=== PATIENT | male | born 1965 | race Caucasian/White ===

== ENCOUNTER 2018-07-31 05:24 | Day surgery (SDC) | payer OTHER ==
[2018-07-31] VITALS (12 sets, daily range): BP systolic 104–160; BP diastolic 50–92; PULSE 55–78; RESP 14–22; Ht 182.9 cm; Wt 81.5 kg
[~2018-07-31] VITALS: Ht 182.9 cm; Wt 81.5 kg
[2018-07-31] MEDS ORDERED: CEFAZOLIN 2 GM/50 ML (PMX) 50 ML IVPB SCH (06:27)
[2018-07-31] MEDS ORDERED: CEFAZOLIN 1 GM INJ IV ONE (06:30)
[2018-07-31] MEDS ORDERED: LACTATED RINGER'S 1,000 ML IV SCH (06:30)
--- NOTE | 2018-07-31 06:51 | HPN ---
Date/Time of Note Date/Time of Note DATE: 07/31/18 TIME: 06:51 Interval H&P Admission Note Pt. seen H&P reviewed: No system changes ANU COSBY MD July 31, 2018 06:51
[2018-07-31] MEDS ORDERED: MIDAZOLAM 1 MG/ML 2 ML INJ ONE ×2 (06:55→07:04)
[2018-07-31] MEDS ORDERED: GLYCOPYRROLATE 0.4 MG INJ ONE (07:00)
[2018-07-31] MEDS ORDERED: PHENYLephrine (100 MCG/ML) 10ML SYG ONE (07:00)
--- NOTE | 2018-07-31 07:01 | PREAC ---
Date/Time of Note Date/Time of Note DATE: 07/31/18 TIME: 07:00 Anesthesia Eval and Record Evaluation Time Pre-Procedure Interview DATE: 07/31/18 TIME: 07:00 Age 53 Sex male NPO: 8 hrs Preoperative diagnosis lumbar stenosis Planned procedure L4-5 lumbar laminectomy Past Medical History Past Medical History: None Surgery & Anesthesia Issues No known issue Meds Anticoagulation: No Beta Aneta within 24 hr: No Reason Beta Aneta not given: Pt. not on B-Aneta No Active Prescriptions or Reported Meds Current Medications Lactated Ringer's 1,000 ml @ 0 mls/hr Q0M IV Last administered on 07/31/18at 06:11; Admin Dose 0 MLS/HR; Start 07/31/18 at 06:30 Meds reviewed: Yes Allergies Coded Allergies: Penicillins (Verified Allergy, Unknown, 07/31/18) NOT SURE. IT HAPPEND A CHILD Allergies Reviewed: Yes Labs/Studies Labs Reviewed: Reviewed by anesthesiologist Blood Bank Test 07/31/18 05:49 07/31/18 06:12 Blood Type O POSITIVE Blood Product Summary Counts test: N/A Studies: ECG Pre-procedure Exam Last vitals Vital Signs Date Temp Pulse Resp B/P (MAP) Pulse Ox O2 O2 Flow FiO2 Time Delivery Rate 07/31/18 98.2 55 18 134/92 99 Room Air 06:00 (106) Airway: Adequate mouth opening, Adequate thyromental dist Mallampati: Mallampati II Teeth: Normal Lung: Normal Heart: Normal ASA Physical Status ASA physical status: 2 Emergency: None Planned Anesthetic General/MAC: ETT Planned Pain Management Parenteral pain med, Local by surgeon Pre-operative Attestations Prior to commencing anesthesia and surgery, the patient was re-evaluated, there was verification of: *The patient's identity *The results of appropriate recent lab work and preoperative vital signs *The above evaluation not changing prior to induction *Anesthetic plan, risk benefits, alternative and complications discussed with patient/family; questions answered; patient/family understands, accepts and wishes to proceed. HOSSEIN GANN MD July 31, 2018 07:01
[2018-07-31] MEDS ORDERED: BUPIVACAINE 0.25% (MPF) 30 ML INJ ONE (07:33)
[2018-07-31] MEDS ORDERED: POLYMYXIN/BACITRACIN 1L IRRIG ONE (07:33)
[2018-07-31] MEDS ORDERED: THROMBIN (BOVINE) 5,000 UNIT VIAL TP ONE (08:41)
[2018-07-31] MEDS ORDERED: SURGIFOAM POWDER 1 GM KIT ONE (08:41)
[2018-07-31] MEDS ORDERED: ONDANSETRON 4 MG INJ ONE (09:13)
[2018-07-31] MEDS ORDERED: ROCURONIUM 50 MG INJ ONE (09:15)
[2018-07-31] MEDS ORDERED: LIDOCAINE 2% (SDV) 5 ML INJ ONE (09:15)
[2018-07-31] MEDS ORDERED: PROPOFOL 20 ML ONE (09:15)
[2018-07-31] MEDS ORDERED: METOCLOPRAMIDE 10 MG INJ ONE (09:16)
[2018-07-31] MEDS ORDERED: OXYCODONE/ACETAMINOPHEN (5/325) TAB PO PRN ×2 (09:30)
[2018-07-31] MEDS ORDERED: MEPERIDINE 25 MG INJ ONE (09:32)
--- NOTE | 2018-07-31 09:36 | SIPON ---
Date/Time of Note Date/Time of Note DATE: 07/31/18 TIME: 09:33 Operative Report Preoperative Diagnosis Spinal Stenosis L3 Postoperative Diagnosis same Operation/Procedure Performed Central decompressive laminectomy at L3 Partial central decompressive laminectomy at L4 (superiorly) Inspection of the L3-4 disc on the left Medial facetectomy and foraminotomy L3-4 bilaterally Cosmetic wound closure (5 cm) Lateral localizing lumbar radiographs (2) Intraoperative nerve monitoring (2-1/2 hours) Surgeon see signature line clerical administrative assistant Diana TROTTER Anesthesia: general Estimated blood loss: 10 - 50 ml's Transfusion Required none Specimen Spinous process of L3 Grafts/Implants none Complications none ANU COSBY MD July 31, 2018 09:36
--- NOTE | 2018-07-31 09:39 | PAC ---
Date/Time of Note Date/Time of Note DATE: 07/31/18 TIME: 09:38 Post-Anesthesia Notes Post-Anesthesia Note Last documented vital signs Vital Signs Date Temp Pulse Resp B/P (MAP) Pulse Ox O2 O2 Flow FiO2 Time Delivery Rate 07/31/18 78 16 140/72 100 Mask 09:35 (94) 07/31/18 98.0 09:30 Activity: WNL Respiratory function: WNL Cardiovascular function: WNL Mental status: Baseline Pain reasonably controlled: Yes Hydration appropriate: Yes Nausea/Vomiting absent: Yes Comments BP:146/78, P:88, Spo2:100%, T:98 HOSSEIN GANN MD July 31, 2018 09:39
[2018-07-31] MEDS: HYDROmorphONE 1 MG/5 ML IV SYRINGE IV PRN ×2 (09:52→09:59)
[2018-07-31] MEDS ORDERED: ONDANSETRON 4 MG INJ IV PRN (10:00)
[2018-07-31] MEDS ORDERED: MEPERIDINE 25 MG INJ IV PRN (10:00)
[2018-07-31] MEDS ORDERED: FENTAnyl 50 MCG/ML VIAL IV PRN (10:00)
[2018-07-31] MEDS ORDERED: LABETALOL HCL 20MG INJ IV PRN (10:00)
[2018-07-31] MEDS ORDERED: METOCLOPRAMIDE 10 MG INJ IV PRN (10:00)
[2018-07-31] MEDS ORDERED: DIPHENHYDRAMINE 50 MG INJ IV PRN (10:00)
[2018-07-31] MEDS ORDERED: hydrALAzine 20 MG INJ IV PRN (10:00)
[2018-07-31] MEDS ORDERED: HYDROmorphONE 1 MG/5 ML IV SYRINGE IV PRN (10:00)
--- NOTE | 2018-07-31 10:34 | OPR ---
DATE OF OPERATION: 07/31/2018 PREOPERATIVE DIAGNOSIS: Herniated disk L5. POSTOPERATIVE DIAGNOSIS: Lumbar spinal stenosis at L3. OPERATION PERFORMED: 1. Central decompressive laminectomy at L3. 2. Partial central decompression laminectomy at L4 (superiorly). 3. Inspection of the L3-4 disk on the left. 4. Medial facetectomy and foraminotomy, L3-4 bilaterally. 5. Cosmetic wound closure (5 cm). 6. Lateral localized lumbar radiographs (2). 7. Intraoperative nerve monitoring (2-1/2 hours) SURGEON: Richmond iKlgore MD IVORY POLISHER: SERGO Waterman ANESTHESIA: Endotracheal. ANESTHESIOLOGIST: Joshua Pham MD ESTIMATED BLOOD LOSS: 20 mL -- none replaced. DRAINS: No drains employed. COMPLICATIONS: None. PERTINENT HISTORY AND PHYSICAL: This is a 53-year-old male who sustained injury to his back in the c ourse of his employment on 11/06/1995. He has had extensive care over the years since that time, has remained symptomatic with back and lower extremity complaints, left greater than right, which have b een unrelieved by conservative management. He has undergone a number of diagnostic studies including a recent MRI of the lumbar spine, which demonstrated moderately severe central stenosis at L3 with s ome left-sided disk bulging at that level. Treatment options were discussed with the patient, who el ected to proceed with surgery. OPERATIVE FINDINGS AT SURGERY: At surgery, a moderately severe central stenosis at L3-L4 was confirm ed. There was some left-sided disk bulging but no angelita herniation. The baseline intraoperative ner ve monitoring revealed a decrease in the left L3 potential of 30%, the left L4 potential of 40% and t he left L5 potential of 30%. These all returned to normal at the completion of the surgery. OPERATIVE PROCEDURE: With the patient in supine position after satisfactory induction of general end otracheal anesthesia by Dr. Pham, the patient was turned to the prone kneeling position on to the [facility] frame. All pressure points were carefully padded. Back was prepped and draped in usual ster ile fashion. Athrombic pumps were applied to the legs below the knees to prevent venous stasis durin g and after procedure. An indwelling Stack catheter was also placed to facilitate bladder drainage d uring the procedure. Two spinal needles were placed next to what was felt to be the L3 and L4 spinou s processes; lateral angiogram was taken which confirmed anatomic localization. A 5 cm incision then carried midline over the spinous process of L3 after skin was infiltrated with 0.25% Marcaine withou t epinephrine for postoperative analgesia. Superficial retractors were placed and hemostasis secured with electrocautery. Throughout the procedure, copious amounts of antibacterial irrigating solution used to periodically irrigate the wound. The fascia was incised in midline with a hot knife and a b ilateral subperiosteal dissection carried out at L3. Deep retractors were placed and deep hemostasis secured with electrocautery. A second intraoperative radiograph was taken with a Sean clamp place d on what was felt to be the spinous process of L3 and this was confirmed with second x-ray. A centr al decompressive laminectomy at L3 was then carried out using a Nayely right-angle bone rongeur, Lek sell rongeur, Kerrison punches and curettes. Ligamentum flavum was excised with sharp dissection. T he operating microscope was then moved into place. A medial facetectomy and foraminotomy was then ac complished at L3-L4 bilaterally. At this point, there was still some significant constriction of the thecal sac at the superior aspect of L4 and the dissection was carried distally to remove some addit ional flavum and superior lamina of L4 bilaterally. The L4 root on the left was then mobilized media lly with a blunt [place] elevator and protected with Matthew nerve root retractor using microdissectio n technique. This revealed a firm diffuse disk bulge of the L3-4 disk. No discrete herniation or fr ee fragments were identified and it did not merit removal. The epidural hemostasis was secured with bipolar electrocautery on a low setting. Anesthesiologist then asked to perform a Valsalva maneuver at 40 mmHg and no spinal fluid leak was noted. The wound was then closed in layers using #1 Stratafi x sutures in deep paralumbar musculature and deep fascia of back, 2-0 Vicryl subcutaneous approximati ng sutures in subcu tissue, and a 4-0 Vicryl subcuticular cosmetic closing suture to the skin. [place] degroot and sterile compressive dressings were applied. The patient having tolerated the procedure well ; was then turned to the supine position onto his bed and extubated by Dr. Pham. He was transporte d to the recovery room in satisfactory condition. At the conclusion of procedure, sponge, instrument , and needle counts were all correct. NEED FOR AREA COUNSELOR: During this spinal surgical procedure, my administrative library assistant was used to retract and protect the spinal nerves and dural sac. My administrative library assistant also employed the suction catheters to gunnar kathryn blood from the surgical field to improve visualization of the neural structures. The administrative library assistant was medically necessary to facilitate the completion of the surgery in a safe and expeditious manner. [facility] [place] regulations, as well as hospital bylaws, preclude the use of non-licensed health care personnel such as operating room technicians, to perform these functions. Throughout the procedure, neural monitoring was carried out by [employer] including EMG, SSEP a nd MEP monitoring of the L3, L4, L5 and S1 nerve roots bilaterally along with spinal cord potentials. These were interpreted in real time by Dr. Familia Delgado. Dictated By: RICHMOND KILGORE MD TM/NTS Conf#: [id number] DID#: [id number] CC: AVIS CARRILLO MD;*EndCC*
== END 2018-07-31 12:10 | disposition home or self-care (01) ==
LOC: UNDOADMIN 05:24 → SDS 05:24 → REC 05:24 → EDSTATUS 07:00 → SDS 12:10 → UNDODISIN 12:10
PROVIDERS: ATTEND Orthopaedic Surgery
DX: M51.26 Other intervertebral disc displacement, lumbar region (principal); M48.061 Spinal stenosis, lumbar region without neurogenic claudication; Z88.0 Allergy status to penicillin; Z96.651 Presence of right artificial knee joint
CPT/HCPCS: 63047; 72020; 86850; 86900; 86901; 86920; 97161; J0690; J1170; J2175; J2250; J2405; J2765; J3010; 88304; 88311; J2370